=== PATIENT | female | born 1990 | race Caucasian/White ===

== ENCOUNTER 2018-11-28 10:20 | Emergency (ER) | payer BC ==
[~2018-11-28] VITALS: Ht 167.6 cm; Wt 153.3 kg
[2018-11-28 15:58] VITALS: BP 145/80
== END 2018-11-28 17:05 | disposition home or self-care (01) ==
LOC: ED 12:27
DX: N13.2 Hydronephrosis with renal and ureteral calculous obstruction (principal); Z90.89 Acquired absence of other organs
CPT/HCPCS: 36415; 74177; 80053; 81001; 83690; 84703; 85025; 87086; 96361; 96374; 96375; 99284; J2270; J2405; J7030; Q9967